=== PATIENT | female | born 1975 ===

== ENCOUNTER 2022-03-15 08:15 | Inpatient (IN) | payer OTHER ==
[~2022-03-15] VITALS: Ht 167.6 cm; Wt 120.2 kg
[2022-03-15] MEDS ORDERED: ZYRTEC10 M3 PO (10:07)
[2022-03-15] MEDS ORDERED: FLONASE PO (10:07)
[2022-03-15] MEDS ORDERED: NORVASC5 MG PO (10:07)
[2022-03-15] MEDS ORDERED: ZOCOR40 MG PO (10:08)
[2022-03-15] MEDS ORDERED: VITAMIN D310 MCG/1 M PO (10:08)
[2022-03-15] MEDS ORDERED: SINGULAIR10 MG PO (10:08)
[2022-03-19] MEDS ORDERED: FLUOCINOLONE AC20 ML (07:46)
[2022-03-19] MEDS ORDERED: GENTAFAIR5 ML (07:46)
[2022-03-19] MEDS ORDERED: FLONASE16 GM (07:52)
[2022-03-22] MEDS ORDERED: PERCOCET 5-3251 EACH PO (07:27)
[2022-03-22] MEDS ORDERED: NEURONTIN300 MG PO (07:27)
[2022-03-22] MEDS ORDERED: AMOX1TAB5 PO (07:28)
[2022-03-22] MEDS ORDERED: INTESTINEX680 M1 PO (07:28)
== END 2022-03-22 12:32 | disposition home or self-care (01) | DRG 331 ==
LOC: O/R 03-19 05:44 → SURG 03-19 08:15 → SURH 03-19 10:54
PROVIDERS: ADMIT Surgery; ATTEND Surgery
PROC: 0DBP4ZZ Excision of Rectum, Percutaneous Endoscopic Approach (ICD-10-PCS; 2022-03-19)
PROC: 0DJD8ZZ Inspection of Lower Intestinal Tract, Via Natural or Artificial Opening Endoscopic (ICD-10-PCS; 2022-03-19)
PROC: 3E0F7SF Introduction of Other Gas into Respiratory Tract, Via Natural or Artificial Opening (ICD-10-PCS; 2022-03-19)
PROC: 0DTN4ZZ Resection of Sigmoid Colon, Percutaneous Endoscopic Approach (ICD-10-PCS; principal; 2022-03-19 09:15)
DX: K57.32 Diverticulitis of large intestine without perforation or abscess without bleeding (principal); N73.6 Female pelvic peritoneal adhesions (postinfective); R59.0 Localized enlarged lymph nodes